=== PATIENT | male | born 1970 | race Caucasian/White ===

== ENCOUNTER 2021-08-27 13:26 | Outpatient (CLI) | payer OTHER, SELFPAY ==
--- NOTE | ~2021-08-27 | XR_ITS ---
EXAMINATION: XR hand BI arthritis min 3V DATE: 08/27/2021 14:06 INDICATION: Pain in the joints of the hands. TECHNIQUE: 4 views of right hand and 4 views of left hand on 7 radiographs were obtained. COMPARISON: None. FINDINGS: RIGHT HAND: Bone alignment is normal. No fracture. There is severe osteoarthritis of distal radioulna r joint and mild osteoarthritis of triscaphe joint and first carpometacarpal joint. There is mild ost eoarthritis of first-third metacarpophalangeal joints, second proximal interphalangeal joint, and thi rd distal interphalangeal joint. There is moderate osteoarthritis of second distal interphalangeal lety int. LEFT HAND: Bone alignment is normal. No fracture. There is mild osteoarthritis of first carpometacarp al joint, first-fourth metacarpophalangeal joints, fifth proximal interphalangeal joint, and second, third, and fifth distal interphalangeal joints. IMPRESSION: 1. Polyarticular osteoarthritis. Reviewed, dictated and finalized at location A. H MANAGER
--- NOTE | ~2021-08-27 | XR_ITS ---
EXAMINATION: XR hip LT 2V w AP pelvis DATE: 08/27/2021 14:07 INDICATION: Anterior and lateral left hip pain TECHNIQUE: Anteroposterior view of the pelvis and anteroposterior and frog-leg lateral views of the l eft hip were obtained. COMPARISON: CT abdomen and pelvis dated 08/12/2016 FINDINGS: Bone alignment is normal. No fracture or suspected avascular necrosis. Mild bilateral hip osteoarthri tis, right greater than left. There are bilateral small os acetabuli along the anterosuperior rim of the acetabula. Decreased left femoral head/neck offset which can predispose towards cam-type femoral acetabular impingement. Mild right and minimal left sacroiliac osteoarthritis. Bilateral L5 pars inte rarticularis defects. IMPRESSION: 1. Mild bilateral hip osteoarthritis, right greater than left. Reviewed, dictated and finalized at location A. RNATIONAL TRADE TEACHER
[2021-08-27 13:39] LABS: Mean Corpuscular HGB Conc 33.3 g/dL (32.0-36.0); Mean Corpuscular Hemoglobin 29.3 pg (27.0-31.0); Mean Corpuscular Volume 87.9 fL (78.0-102.0); Mean Platelet Volume 10.8 fl (8.7-11.0); Platelet Count Result 250 K/mm3 (150-420); Red Blood Count 5.46 M/mm3 (4.70-6.10); Red Cell Distribution Width 12.7 % (11.6-14.4); White Blood Count 8.3 K/mm3 (4.8-10.8)
[2021-08-27 13:53] LABS: Creatinine Urine 103.36 mg/dL (40-278); MALB Creatinine Ratio 12.7 mg/g (0-30); Microalbumin Urine Random 13.2 mg/L
[2021-08-27 14:18] LABS: Alanine Aminotransferase 38 U/L (16-63); Albumin Level 3.5 g/dL (3.4-5.0); Alkaline Phosphatase 79 U/L (46-116); Anion Gap 9 mmol/L (8-16); Aspartate Amino Transferase 17 U/L (15-37); Bilirubin,Total 0.7 mg/dL (0.00-1.00); Blood Urea Nitrogen 12 mg/dL (7-18); Calcium 9.2 mg/dL (8.5-10.1); Carbon Dioxide 31 mmol/L (21-32); Chloride 100 mmol/L (98-108); Cholesterol 185 mg/dL (0-200); Estimated Glomerular Filt Rate > 60; Glucose 377 mg/dL (70-99); HDL Direct 41 mg/dL (40-60); LDL Cholesterol Calculated 107 mg/dL (<130); Osmolality Calculated 304 mOsm/kg (285-295); Potassium 3.9 mmol/L (3.5-5.1); Sodium 140 mmol/L (136-145); Total Protein 6.7 g/dL (6.4-8.2); Triglycerides 183 mg/dL (0-150)
== END 2021-08-27 13:27 | disposition home or self-care (01) ==
LOC: CHSLAB 13:30
PROVIDERS: PCP Family Medicine; Visit Provider Family Medicine
DX: E11.9 Type 2 diabetes mellitus without complications (principal); M79.642 Pain in left hand; M79.641 Pain in right hand; M19.90 Unspecified osteoarthritis, unspecified site; M25.552 Pain in left hip
CPT/HCPCS: 36415; 73130; 73502; 80053; 80061; 82043; 83036; 85027

== ENCOUNTER 2022-01-22 08:59 | Outpatient (CLI) | payer OTHER, SELFPAY ==
--- NOTE | ~2022-01-22 | US_ITS ---
EXAMINATION: US scrotum doppler DATE: 01/22/2022 09:44 INDICATION: Epididymitis. Right scrotal pain and mass. TECHNIQUE: Testicular sonogram utilizing grayscale and Doppler COMPARISON: None. FINDINGS: The right testis measures 4.0 x 3.0 x 2.2 cm. The left testis measures 4.0 x 3.0 x 2.0 cm. Symmetric normal grayscale appearance to both testes. There is normal vascular flow to both testes. The right e pididymis is normal with normal vascular flow. The left epididymis is normal with normal vascular michael w. There is no varicocele. Minimal bilateral hydroceles. There is increased fat within the bilateral inguinal canals extending caudally to the cephalad margin of the bilateral testes. On the right this measures up to 2.2 cm in maximal diameter. IMPRESSION: 1. Normal bilateral testes and epididymides. 2. Increased fat within the bilateral inguinal canals which could be related to either body habitus o r fat-containing inguinal hernias. Reviewed, dictated and finalized at location A. IMPRESSION: 1. Normal bilateral testes and epididymides. 2. Increased fat within the bilateral inguinal canals which could be related to either body habitus or fat-containing inguinal hernias.
== END 2022-01-22 09:00 | disposition home or self-care (01) ==
LOC: CHSIMG 09:01
PROVIDERS: PCP Family Medicine; Visit Provider Family Medicine
DX: N45.1 Epididymitis (principal)
CPT/HCPCS: 76870; 93976

== ENCOUNTER 2022-02-21 10:19 | Outpatient (CLI) | payer OTHER, SELFPAY ==
[2022-02-21 10:47] LABS: Anion Gap 11 mmol/L (8-16); Blood Urea Nitrogen 18 mg/dL (7-18); Calcium 8.5 mg/dL (8.5-10.1); Carbon Dioxide 26 mmol/L (21-32); Chloride 105 mmol/L (98-108); Estimated Glomerular Filt Rate > 60; Glucose 101 mg/dL (70-99); Osmolality Calculated 295 mOsm/kg (285-295); Potassium 3.4 mmol/L (3.5-5.1); Sodium 142 mmol/L (136-145)
--- NOTE | 2022-02-21 10:49 | ECG_ITS ---
Measurements Intervals [place] Rate: 76 P: -10 MS: 175 QRS: 71 QRSD: 104 T: 36 QT: 384 QTc: 432 Interpretive Statements SINUS RHYTHM NORMAL ECG NO PREVIOUS ECG AVAILABLE FOR COMPARISON Electronically Signed On 02-21-2022 11:59:39 CDT by Curtis Canas D.O.
== END 2022-02-21 10:20 | disposition home or self-care (01) ==
LOC: CHSLAB 10:24
PROVIDERS: Plastic Surgery; PCP Family Medicine
DX: G56.21 Lesion of ulnar nerve, right upper limb (principal); I10 Essential (primary) hypertension; E11.9 Type 2 diabetes mellitus without complications
CPT/HCPCS: 36415; 80048; 93005

== ENCOUNTER 2022-03-05 07:36 | Day surgery (SDC) | payer OTHER, SELFPAY ==
[2022-01-22 11:22] VITALS: BMI 38.1
[2022-02-17 11:11] VITALS: BMI 36.5
[2022-03-05 08:13] VITALS: BP 146/89; PULSE 88; RESP 18; TEMP 36.5; O2SAT 100
[2022-03-05] MEDS: LACTATED RINGERS 1,000 ML 150 ML IV CONT (08:50)
--- NOTE | 2022-03-05 09:05 | WPDANESEPPF ---
Anes - Initial Pre Proc Eval Procedure: Operation Date: 03/05/22 09:45 Proposed Procedures p Screening Colonoscopy - Manny Albarado DO Date/Time: 03/05/22 09:05 Surgeon: Manny Albarado DO Pre Op Diagnosis: Neoplasm Screening Patient Data Age: 51 Gender: M Height: 1.88 m Weight: 130.8 kg Last Vital Signs Temp 36.5 C 03/05/22 08:13 Pulse 88 03/05/22 08:13 Resp 18 03/05/22 08:13 BP 146/89 H 03/05/22 08:13 Pulse Ox 100 03/05/22 08:13 O2 Del Method Room Air 03/05/22 08:13 Allergies Allergy/AdvReac Type Severity Reaction Status Date / Time No Known Allergies Allergy Verified 03/05/22 08:10 Home Medications Medication Instructions Recorded Confirmed Type sildenafil 100 mg tablet 100 mg PO DAILY PRN sexual 06/28/19 03/05/22 Rx activity #90 tabs pen needle, diabetic 31 gauge x See Rx Instructions .Route 08/03/20 03/05/22 Rx 1/4 (UltiCare Pen Needle) .COMPLEX #100 ea losartan 100 See Rx Instructions .Route 08/28/21 03/05/22 Rx mg-hydrochlorothiazide 12.5 mg .COMPLEX #90 tabs tablet dapagliflozin 10 mg tablet 10 mg PO DAILY #90 tabs 11/27/21 03/05/22 Rx (Farxiga) amlodipine 10 mg tablet See Rx Instructions .Route 12/24/21 03/05/22 Rx .COMPLEX #90 tabs apixaban 2.5 mg tablet (Eliquis) See Rx Instructions .Route 12/24/21 03/05/22 Rx .COMPLEX #180 tabs semaglutide 1 mg/dose (4 mg/3 mL) 1 mg (0.75 mL) subcut WEEKLY #3 mL 01/21/22 03/05/22 Rx subcutaneous pen injector (Ozempic) Patient hx anesthesia problems: none Family hx anesthesia problems: none Results Review: All pre-operative results and documents have been reviewed as part of the pre-operative evaluation. [facility] Past Medical History Medical History ADHD Cigarette nicotine dependence DM2 (diabetes mellitus, type 2) Erectile dysfunction Hypertension Overweight Pulmonary embolism 2014 Surgical History Surgical History No history of previous surgery Family History Family History Father Hypertension Family history of malignant neoplasm Other Diabetes mellitus Social History Social History Smoking packs per day: 0.56 Smoking cigarettes per day: 11.2 Years smoked: 13 Smoking pack-years: 7.28 Smoking status: Current every day smoker Tobacco type: cigarettes Alcohol intake: current Substance use: never Substance use type: does not use Living arrangements: with family Additional living arrangements comments: . 2 Children. Gender identity (if verbalized by the patient): Male Spiritual care concerns: No Anes - Eval Final PreProcedure Day of Procedure 03/05/22 09:05 Patient weight: obese Heart: regular rate and rhythm Lungs: decreased breath sounds Airway: Mallampati scale class II Neurological: alert and oriented Last oral intake: >/= 8 hours ASA classification: III Emergent: no Anesthetic plan: proceed Anesthesia type and monitoring: general GIVS and standard monitoring Results Review: All pre-operative results and documents have been reviewed as part of the pre-operative evaluation. Informed Consent: The patient's anesthetic plan and its attendant risks and benefits were discussed with the patient/family/POA. Questions were solicited and answers provided to the satisfaction of the patient/family/POA.
--- NOTE | 2022-03-05 09:57 | PM.IMHP ---
H&P: HPI History of Present Illness Date/Time: 03/05/22 09:57 Chief Complaint: Screening for colorectal cancer Narrative: this is a 51-year-old man who presents for a screening colonoscopy. He has never had 1 before. He does state he has a history of a an anal fistula and had a procedure done with this the past. He denies any hematochezia or melena. He denies any 1st degree relatives with a history of colon cancer. Review of Systems Review of Systems: All systems reviewed & are unremarkable except as noted in HPI and below Constitutional: Constitutional: Denies chills, Denies fever(s), Denies headache(s) and Denies weight loss Eyes: Eyes: Denies change in vision ENT: Denies dizziness, Denies headache(s), Denies neck mass and Denies throat swelling Cardiovascular: Cardiovascular: Denies chest pain, Denies lightheadedness and Denies dyspnea Respiratory: Respiratory: Denies cough, Denies dyspnea and Denies wheezing Gastrointestinal: Gastrointestinal: Denies abdominal pain, Denies change in bowel habits, Denies nausea and Denies vomiting Genitourinary: Genitourinary: Denies hematuria and Denies dysuria Musculoskeletal: Musculoskeletal: Reports as per HPI Integumentary/Breasts: Skin/Breast: Reports as per HPI Neurologic: Denies dizziness and Denies headache(s) Allergic/Immunologic: Allergic/Immunologic: Denies throat swelling and Denies wheezing PMF Past Medical History Medical History ADHD Cigarette nicotine dependence DM2 (diabetes mellitus, type 2) Erectile dysfunction Hypertension Overweight Pulmonary embolism 2014 Surgical History Surgical History No history of previous surgery Family History Family History Father Hypertension Family history of malignant neoplasm Other Diabetes mellitus Social History Social History Smoking packs per day: 0.56 Smoking cigarettes per day: 11.2 Years smoked: 13 Smoking pack-years: 7.28 Smoking status: Current every day smoker Tobacco type: cigarettes Alcohol intake: current Substance use: never Substance use type: does not use Living arrangements: with family Additional living arrangements comments: . 2 Children. Gender identity (if verbalized by the patient): Male Spiritual care concerns: No Meds Home Medications and Allergies Home Medications Medication Instructions Recorded Confirmed Type sildenafil 100 mg tablet 100 mg PO DAILY PRN sexual 06/28/19 03/05/22 Rx activity #90 tabs pen needle, diabetic 31 gauge x See Rx Instructions .Route 08/03/20 03/05/22 Rx 1/4 (UltiCare Pen Needle) .COMPLEX #100 ea losartan 100 See Rx Instructions .Route 08/28/21 03/05/22 Rx mg-hydrochlorothiazide 12.5 mg .COMPLEX #90 tabs tablet dapagliflozin 10 mg tablet 10 mg PO DAILY #90 tabs 11/27/21 03/05/22 Rx (Farxiga) amlodipine 10 mg tablet See Rx Instructions .Route 12/24/21 03/05/22 Rx .COMPLEX #90 tabs apixaban 2.5 mg tablet (Eliquis) See Rx Instructions .Route 12/24/21 03/05/22 Rx .COMPLEX #180 tabs semaglutide 1 mg/dose (4 mg/3 mL) 1 mg (0.75 mL) subcut WEEKLY #3 mL 01/21/22 03/05/22 Rx subcutaneous pen injector (Ozempic) Allergies Allergy/AdvReac Type Severity Reaction Status Date / Time No Known Allergies Allergy Verified 03/05/22 08:10 Vital Signs Vital Signs - 24 hr 03/05/22 08:13 Temperature 36.5 C Pulse Rate 88 Respiratory Rate 18 Blood Pressure 146/89 H Pulse Oximetry 100 Oxygen Delivery Room Air Exam Const: General: no acute distress and alert Orientation/consciousness: patient oriented x3 HENMT: Head: normocephalic and atraumatic Ears: hearing grossly normal bilaterally General nose exam: Normal nares present Mouth: Yes Normal oral
[2022-03-05 10:31] VITALS: BP 102/76; PULSE 77; RESP 16; O2SAT 97
--- NOTE | 2022-03-05 10:38 | WPDANESPN ---
Anes - Prog Note Post-Op Date/Time: 03/05/22 10:38 Cardiovascular status: normal Respiratory status: normal Airway patency: baseline Mental status: baseline Post-Op hydration status: normal Vital Signs: Last Vital Signs Temp 36.5 C 03/05/22 08:13 Pulse 88 03/05/22 08:13 Resp 18 03/05/22 08:13 BP 146/89 H 03/05/22 08:13 Pulse Ox 100 03/05/22 08:13 O2 Del Method Room Air 03/05/22 08:13 Pain Score (VAS): 0 I/O: Intake & Output 03/04/22 03/05/22 03/05/22 23:59 07:59 15:59 Intake Total 300 Balance 300 Patient Feedback: Patient satisfied with anesthetic care.
[2022-03-05 10:41] VITALS: BP 106/70; PULSE 86; RESP 20; O2SAT 100
[2022-03-05 10:51] VITALS: BP 125/79; PULSE 74; RESP 20; O2SAT 100
[2022-03-05 12:58] LABS: Glucose Point of Care 113 mg/dl (65-105)
== END 2022-03-05 11:05 | disposition home or self-care (01) ==
PROVIDERS: PCP Family Medicine; Visit Provider Surgery
PROC: 0DJD8ZZ Inspection of Lower Intestinal Tract, Via Natural or Artificial Opening Endoscopic (ICD-10-PCS; CPT 45378; principal; 2022-03-05 09:45)
DX: Z12.11 Encounter for screening for malignant neoplasm of colon (principal)
CPT/HCPCS: 45385

== ENCOUNTER 2022-03-05 13:00 | Outpatient (NON) | payer OTHER, SELFPAY | END 2022-03-05 13:01 | disposition home or self-care (01) | LOC: ANHLAB 03-06 08:21 | PROVIDERS: PCP Family Medicine; Visit Provider Surgery | DX: D12.3 Benign neoplasm of transverse colon (principal) | CPT/HCPCS: 88305 ==

== ENCOUNTER 2022-03-25 05:54 | Day surgery (SDC) | payer OTHER, SELFPAY ==
[2022-03-17 09:43] VITALS: BMI 36.2
[2022-03-25 06:25] VITALS: BP 130/78; PULSE 79; RESP 20; TEMP 36.6; O2SAT 98
--- NOTE | 2022-03-25 07:15 | WPDHPUPDATE1 ---
History and Physical Update Update Date/Time: 03/25/22 07:15 History and Physical has been reviewed, including an updated exam of the patient. There are NO changes in the patient's condition. Risks, benefits, and alternatives have been discussed and questions answered. Patient agrees to proceed with procedure.
--- NOTE | 2022-03-25 07:23 | WPDANESEPPF ---
Anes - Initial Pre Proc Eval Procedure: Operation Date: 03/25/22 07:30 Proposed Procedures p Left Open Carpal Tunnel Release - Avel Clements MD s Left Ulnar Nerve Neuroplasty at Elbow - Avel Clements MD Date/Time: 03/25/22 07:23 Surgeon: Avel Clements MD Pre Op Diagnosis: Left Carpal and Cubital Tunnel Syndrome Patient Data Age: 51 Gender: M Height: 1.88 m Weight: 132.4 kg Last Vital Signs Temp 36.6 C 03/25/22 06:25 Pulse 79 03/25/22 06:25 Resp 20 03/25/22 06:25 BP 130/78 03/25/22 06:25 Pulse Ox 98 03/25/22 06:25 O2 Del Method Room Air 03/25/22 06:25 Allergies Allergy/AdvReac Type Severity Reaction Status Date / Time No Known Allergies Allergy Verified 03/25/22 06:15 Home Medications Medication Instructions Recorded Confirmed Type sildenafil 100 mg tablet 100 mg PO DAILY PRN sexual 06/28/19 03/17/22 Rx activity #90 tabs pen needle, diabetic 31 gauge x See Rx Instructions .Route 08/03/20 03/25/22 Rx 1/4 (UltiCare Pen Needle) .COMPLEX #100 ea losartan 100 See Rx Instructions .Route 08/28/21 03/25/22 Rx mg-hydrochlorothiazide 12.5 mg .COMPLEX #90 tabs tablet dapagliflozin 10 mg tablet 10 mg PO DAILY #90 tabs 11/27/21 03/25/22 Rx (Farxiga) amlodipine 10 mg tablet See Rx Instructions .Route 12/24/21 03/25/22 Rx .COMPLEX #90 tabs apixaban 2.5 mg tablet (Eliquis) See Rx Instructions .Route 12/24/21 03/25/22 Rx .COMPLEX #180 tabs semaglutide 1 mg/dose (4 mg/3 mL) 1 mg (0.75 mL) subcut WEEKLY #3 mL 03/10/22 03/25/22 Rx subcutaneous pen injector (Ozempic) Patient hx anesthesia problems: none Family hx anesthesia problems: none Results Review: All pre-operative results and documents have been reviewed as part of the pre-operative evaluation. [facility] Past Medical History Medical History ADHD Cigarette nicotine dependence DM2 (diabetes mellitus, type 2) Erectile dysfunction Hypertension Overweight Pulmonary embolism 2014 Surgical History Surgical History No history of previous surgery Family History Family History Father Hypertension Family history of malignant neoplasm Other Diabetes mellitus Social History Social History Smoking packs per day: 0.56 Smoking cigarettes per day: 11.2 Years smoked: 13 Smoking pack-years: 7.28 Smoking status: Current every day smoker Tobacco type: cigarettes Alcohol intake: current Substance use: never Substance use type: does not use Living arrangements: with family Additional living arrangements comments: . 2 Children. Gender identity (if verbalized by the patient): Male Spiritual care concerns: No Anes - Eval Final PreProcedure Day of Procedure 03/25/22 07:23 Patient weight: obese Heart: regular rate and rhythm Lungs: decreased breath sounds Airway: Mallampati scale class II Neurological: alert and oriented Last oral intake: >/= 8 hours ASA classification: III Emergent: no Anesthetic plan: proceed Anesthesia type and monitoring: general GIVS and standard monitoring Results Review: All pre-operative results and documents have been reviewed as part of the pre-operative evaluation. Informed Consent: The patient's anesthetic plan and its attendant risks and benefits were discussed with the patient/family/POA. Questions were solicited and answers provided to the satisfaction of the patient/family/POA.
[2022-03-25] MEDS: LACTATED RINGERS 1,000 ML 30 ML IV CONT ×2 (07:25→08:56)
[2022-03-25] MEDS: LIDO 1%/EPINEPHRINE 1:100,000 20 ML VIAL 9 ML INFILTRATE (07:53)
[2022-03-25 08:00] LABS: Glucose Point of Care 120 mg/dl (65-105)
[2022-03-25 08:40] VITALS: BP 106/61; PULSE 78; RESP 16; TEMP 36.4; O2SAT 100
--- NOTE | 2022-03-25 08:54 | W.PM.PROC2 ---
Procedure Note - Detailed Date of Procedure 03/25/22 Pre-op Diagnosis Left Carpal and Cubital Tunnel Syndrome Post-op Diagnosis Same Procedure Performed Left open carpal tunnel release and left ulnar neuroplasty at the elbow Surgeon Avel Clements MD Trains Service Conductor Anesthesia MAC Description of Procedure The left carpal tunnel and cubital tunnel were marked on the patient in the holding area. He was taken to the operating where he was placed supine on the operating table. He was given IV sedation and the left upper extremity was prepped and draped in the usual fashion. A time-out was held and confirmed. The sites were remarked for incisions and locally infiltrated with 1% lidocaine with epinephrine. The extremity was exsanguinated with an Esmarch bandage and the tourniquet inflated to 250 mmHg. The incision was made 1st in the palm blunt dissection revealed the palmar aponeurosis. This and the transverse retinaculum were incised with a 15. Blade opening the canal. The retinaculum was divided distally and proximally to completely release it under 3 point retraction. No unusual anatomy was noted. The skin was then closed with interrupted 4-0 nylon suture. The elbow was flexed and supported on folded towels and the incision made at the elbow. Blunt dissection through the thick subcutaneous tissue revealed the medial epicondyle. There was triceps muscle but no traversing anconeus epitrochlearis over the nerve. The nerve was generally in anatomic position. The sheath was opened and the nerve followed proximally and then distally to completely release it. Appeared that there was redundant fat within this sheath surrounding the nerve which could certainly have been a factor in compression. The dissection and release were continued under the flexor muscle fascia distally until a finger could be passed alongside the nerve in either direction without obstruction. The nerve did not sublux from the groove with flexion and extension. The tourniquet was released a few bleeding points were electrocoagulated. The wound was closed with intradermal 3-0 Monocryl a several position and then a running intradermal 3-0 Monocryl to close the skin. The usual bandages were applied at each site and he is discharged with instructions in wound care and follow-up. He has a prescription for hydrocodone 5/325 7.
[2022-03-25 08:55] VITALS: BP 125/77; PULSE 73; RESP 14; O2SAT 100
--- NOTE | 2022-03-25 09:02 | SUR.PHASEI ---
DR MAY IN PACU SPEAKING TO PT. PT ASKING FOR A PRESCRIPTION STRONGER THAN VICODIN. DENIES PAIN AT THIS TIME.
[2022-03-25 09:10] VITALS: BP 130/76; PULSE 79; RESP 14; O2SAT 98
--- NOTE | 2022-03-25 09:15 | SUR.PHASEI ---
PT AWAKE AND ALERT. DENIES PAIN OR NAUSEA. ASKING TO GO HOME. MEETS PACU DISCHARGE CRITERIA.
[2022-03-25 09:20] VITALS: BP 127/77; PULSE 75; RESP 16; O2SAT 98
--- NOTE | 2022-03-25 09:35 | SUR.PHASEII ---
ICE PACK APPLIED TO LT WRIST AND LT ELBOW AREAS
--- NOTE | 2022-03-25 09:36 | SUR.PHASEII ---
PT AWAKE AND ALERT. DENIES PAIN. ASKING TO GO HOME.
[2022-03-25 09:40] VITALS: BP 128/77; PULSE 78; RESP 16
--- NOTE | 2022-03-25 09:40 | WPDANESPN ---
Anes - Prog Note Post-Op Date/Time: 03/25/22 09:40 Cardiovascular status: normal Respiratory status: normal Airway patency: baseline Mental status: baseline Post-Op hydration status: normal Vital Signs: Last Vital Signs Temp 36.4 C L 03/25/22 08:40 Pulse 75 03/25/22 09:20 Resp 16 03/25/22 09:20 BP 127/77 03/25/22 09:20 Pulse Ox 98 03/25/22 09:20 O2 Del Method Room Air 03/25/22 09:20 O2 Flow Rate 6 03/25/22 08:55 Pain Score (VAS): 0 I/O: Intake & Output 03/24/22 03/25/22 03/25/22 23:59 07:59 15:59 Intake Total 150 Balance 150 03/25/22 06:29 POC Capillary Glucose 120 H Patient Feedback: Patient satisfied with anesthetic care.
== END 2022-03-25 09:50 | disposition home or self-care (01) ==
PROVIDERS: PCP Family Medicine; Visit Provider Plastic Surgery
PROC: (CPT 64721; principal; 2022-03-25 07:30)
PROC: (CPT 64718; 2022-03-25 07:30)
DX: G56.02 Carpal tunnel syndrome, left upper limb (principal)
CPT/HCPCS: 64718; 64721

== ENCOUNTER 2022-04-14 13:17 | Outpatient (CLI) | payer OTHER, SELFPAY ==
--- NOTE | ~2022-04-14 | CT_ITS ---
EXAMINATION: CT abdomen pelvis wo con DATE: 04/14/2022 13:51 INDICATION: Gross hematuria. TECHNIQUE: Computed tomography (CT) of the abdomen and pelvis was performed without intravenous contr ast. Automated exposure control and iterative reconstruction technique were employed. The dose-length product was 1072.31 mGy-cm. COMPARISON: CT abdomen 03/19/2018 FINDINGS: The visualized portions of the lung bases demonstrate mild atelectasis. No pleural effusion . The heart size is normal. No pericardial effusion. The liver, gallbladder, spleen, pancreas, and le ft adrenal gland are normal. There is a 2.0 cm mass in right adrenal gland measuring low attenuation, consistent with an adenoma. The kidneys are normal. There is no urolithiasis. The bladder is not wel l distended. There is diverticulosis of the colon without evidence of diverticulitis. The appendix is normal. There are no dilated loops of bowel. There is an umbilical hernia containing fat. There are no pathologically enlarged lymph nodes. There is no free intraperitoneal fluid. There are chronic bette ateral L5 pars defects. There is 5 mm anterolisthesis of L5 on S1. There is moderate lower lumbar spo ndylosis. IMPRESSION: 1. No urolithiasis. Reviewed, dictated and finalized at location A. IMPRESSION: 1. No urolithiasis.
[2022-04-14 13:34] LABS: Hematocrit 50.1 % (40.0-54.0); Hemoglobin 16.3 g/dL (14.0-18.0); Mean Corpuscular HGB Conc 32.5 g/dL (32.0-36.0); Mean Corpuscular Hemoglobin 29.1 pg (27.0-31.0); Mean Corpuscular Volume 89.5 fL (78.0-102.0); Mean Platelet Volume 10.1 fl (8.7-11.0); Platelet Count Result 272 K/mm3 (150-420); Red Cell Distribution Width 13.4 % (11.6-14.4); White Blood Count 10.4 K/mm3 (4.8-10.8)
[2022-04-14 13:48] LABS: Creatinine Urine 94.66 mg/dL (40-278); MALB Creatinine Ratio 43.1 mg/g (0-30); Microalbumin Urine Random 40.8 mg/L
[2022-04-14 13:50] LABS: Hemoglobin A1C 5.5 % (<5.7)
[2022-04-14 14:29] LABS: Alanine Aminotransferase 30 U/L (16-63); Albumin Level 3.6 g/dL (3.4-5.0); Alkaline Phosphatase 69 U/L (46-116); Anion Gap 12 mmol/L (8-16); Aspartate Amino Transferase 15 U/L (15-37); Bilirubin,Total 0.6 mg/dL (0.00-1.00); Blood Urea Nitrogen 14 mg/dL (7-18); Carbon Dioxide 26 mmol/L (21-32); Chloride 108 mmol/L (98-108); Estimated Glomerular Filt Rate > 60; Glucose 96 mg/dL (70-99); Lipase 131 U/L (73-393); Osmolality Calculated 302 mOsm/kg (285-295); Potassium 3.9 mmol/L (3.5-5.1); Sodium 146 mmol/L (136-145); Total Protein 7.1 g/dL (6.4-8.2)
== END 2022-04-14 13:18 | disposition home or self-care (01) ==
LOC: CHSLAB 13:20
PROVIDERS: PCP Family Medicine; Visit Provider Family Medicine
DX: R31.9 Hematuria, unspecified (principal); R10.9 Unspecified abdominal pain; E11.9 Type 2 diabetes mellitus without complications
CPT/HCPCS: 36415; 74176; 80053; 82043; 83036; 83690; 85027

== ENCOUNTER 2023-07-14 14:53 | Outpatient (CLI) | payer OTHER, SELFPAY ==
[2023-07-14 15:10] LABS: Basophils Absolute Auto 0.06 K/mm3 (0.00-0.10); Basophils Percent Auto 0.6 % (0.0-1.0); Eosinophils Absolute Auto 0.24 K/mm3 (0.02-0.50); Eosinophils Percent Auto 2.5 % (1.0-6.0); Hemoglobin 16.5 g/dL (14.0-18.0); Immature Granulocyte Absolute 0.03 K/mm3 (0.00-0.00); Immature Granulocyte Percent A 0.3 % (0.0-0.0); Lymphocytes Absolute Auto 2.11 K/mm3 (1.10-4.50); Lymphocytes Percent Auto 22.2 % (18.0-42.0); Mean Platelet Volume 9.8 fl (8.7-11.0); Monocytes Absolute Auto 1.05 K/mm3 (0.10-0.90); Monocytes Percent Auto 11.1 % (2.0-11.0); Neutrophils Percent Auto 63.3 % (50.0-70.0); Platelet Count Result 268 K/mm3 (150-420); Red Blood Count 5.68 M/mm3 (4.70-6.10); Red Cell Distribution Width 13.1 % (11.6-14.4); White Blood Count 9.5 K/mm3 (4.8-10.8)
[2023-07-14 15:59] LABS: Hemoglobin A1C 5.9 % (<5.7)
[2023-07-14 16:14] LABS: Creatinine Urine 133.45 mg/dL (40-278); MALB Creatinine Ratio 9.7 mg/g (0-30); Microalbumin Urine Random < 13.0 mg/L
[2023-07-14 16:53] LABS: Alanine Aminotransferase 44 U/L (16-63); Albumin Level 3.6 g/dL (3.4-5.0); Alkaline Phosphatase 72 U/L (46-116); Anion Gap 13 mmol/L (8-16); Aspartate Amino Transferase 22 U/L (15-37); Bilirubin,Total 0.7 mg/dL (0.00-1.00); Blood Urea Nitrogen 15 mg/dL (7-18); Calcium 8.7 mg/dL (8.5-10.1); Carbon Dioxide 27 mmol/L (21-32); Chloride 105 mmol/L (98-108); Cholesterol 168 mg/dL (0-200); Estimated Glomerular Filt Rate > 60; Glucose 92 mg/dL (70-99); HDL Direct 53 mg/dL (40-60); LDL Cholesterol Calculated 88 mg/dL (<130); Osmolality Calculated 300 mOsm/kg (285-295); Sodium 145 mmol/L (136-145); Total Protein 7.1 g/dL (6.4-8.2); Triglycerides 136 mg/dL (0-150)
== END 2023-07-14 14:54 | disposition home or self-care (01) ==
LOC: CHSLAB 14:55
PROVIDERS: PCP Family Medicine; Visit Provider Family Medicine
DX: E11.9 Type 2 diabetes mellitus without complications (principal); I10 Essential (primary) hypertension
CPT/HCPCS: 36415; 80053; 80061; 82043; 83036; 85025

== ENCOUNTER 2024-04-12 15:00 | Outpatient (CLI) | payer OTHER, SELFPAY ==
--- NOTE | ~2024-04-12 | XR_ITS ---
XR abdomen/kub 1V 04/12/2024 15:33 INDICATION: Hematuria TECHNIQUE: KUB COMPARISON: None FINDINGS: Bowel gas pattern is normal. There is no evidence of free air, mass, organomegaly, ascites or obstruction. There are punctate lower pole stones in the right kidney. The bones appear intact. M ild lumbar spondylosis. IMPRESSION: 1: Right nephrolithiasis. Reviewed, dictated and finalized at location B. IMPRESSION: 1: Right nephrolithiasis.
[2024-04-12 15:23] LABS: Basophils Absolute Auto 0.05 K/mm3 (0.00-0.10); Basophils Percent Auto 0.6 % (0.0-1.0); Eosinophils Absolute Auto 0.25 K/mm3 (0.02-0.50); Hematocrit 48.7 % (40.0-54.0); Hemoglobin 16.3 g/dL (14.0-18.0); Immature Granulocyte Absolute 0.02 K/mm3 (0.00-0.00); Immature Granulocyte Percent A 0.2 % (0.0-0.0); Lymphocytes Percent Auto 22.9 % (18.0-42.0); Mean Corpuscular HGB Conc 33.5 g/dL (32-36); Mean Corpuscular Hemoglobin 29.4 pg (27.0-31.0); Mean Corpuscular Volume 87.7 fL (78.0-102.0); Mean Platelet Volume 10.3 fl (8.7-11.0); Monocytes Absolute Auto 0.93 K/mm3 (0.10-0.90); Monocytes Percent Auto 11.2 % (2.0-11.0); Neutrophils Absolute Auto 5.13 K/mm3 (1.70-7.20); Neutrophils Percent Auto 62.1 % (50.0-70.0); Platelet Count Result 244 K/mm3 (150-420); Red Blood Count 5.55 M/mm3 (4.70-6.10); Red Cell Distribution Width 13.5 % (11.6-14.4); White Blood Count 8.3 K/mm3 (4.8-10.8)
[2024-04-12 16:36] LABS: Alanine Aminotransferase 37 U/L (16-63); Albumin Level 3.8 g/dL (3.4-5.0); Alkaline Phosphatase 81 U/L (46-116); Anion Gap 12 mmol/L (4-12); Aspartate Amino Transferase 20 U/L (15-37); Bilirubin,Total 1.6 mg/dL (0.00-1.00); Blood Urea Nitrogen 12 mg/dL (7-18); Calcium 9.1 mg/dL (8.5-10.1); Carbon Dioxide 28 mmol/L (21-32); Chloride 102 mmol/L (98-108); Estimated Glomerular Filt Rate > 60; Glucose 91 mg/dL (70-99); Osmolality Calculated 293 mOsm/kg (285-295); Potassium 3.9 mmol/L (3.5-5.1); Sodium 142 mmol/L (136-145); Total Protein 7.1 g/dL (6.4-8.2)
== END 2024-04-12 15:01 | disposition home or self-care (01) ==
LOC: CHSLAB 15:02
PROVIDERS: PCP Family Medicine; Visit Provider Family Medicine
DX: R31.9 Hematuria, unspecified (principal); N20.0 Calculus of kidney
CPT/HCPCS: 36415; 74018; 80053; 85025